=== PATIENT | male | born 2000 | race Caucasian/White ===

== ENCOUNTER 2022-02-02 22:23 | Emergency (ER) | payer OTHER ==
[~2022-02-02] VITALS: Ht 182.9 cm; Wt 146.2 kg
[2022-02-02] MEDS ORDERED: VENTOLIN HFA18 GM INH (23:16)
[2022-02-03] MEDS ORDERED: ONDANSETRON ODT8 MG PO (00:49)
== END 2022-02-03 01:35 | disposition home or self-care (01) ==
LOC: ED 22:23
DX: K52.9 Noninfective gastroenteritis and colitis, unspecified (principal)
CPT/HCPCS: 36415; 80053; 81001; 83690; 85025; 96361; 96374; 99284-25; A9270; J2405; J7030

== ENCOUNTER 2022-07-04 12:09 | Emergency (ER) | payer OTHER ==
[~2022-07-04] VITALS: Ht 180.3 cm; Wt 145.9 kg
[~2022-07-04 12:09] MED LIST: ONDANSETRON ODT8 MG PO; VENTOLIN HFA18 GM INH
[2022-07-04] MEDS ORDERED: ZITHROMAX250 MG PO (14:22)
[2022-07-04] MEDS ORDERED: VENTOLIN HFA18 GM INH (14:22)
== END 2022-07-04 14:31 | disposition home or self-care (01) ==
LOC: ED 12:09
DX: J40 Bronchitis, not specified as acute or chronic (principal); Z20.822 Contact with and (suspected) exposure to COVID-19
CPT/HCPCS: 71045; 87502; 94640; 99285-25; C9803; J1100; U0003